=== PATIENT | female | born 1985 | race Caucasian/White ===

== ENCOUNTER 2017-05-11 10:57 | Emergency (ER) | payer OTHER ==
[2017-05-11 11:06] VITALS: BP 126/74
[2017-05-11] MEDS ORDERED: LIDOCAINE-EPINEPH-TETRACAINE 3 ML SYRINGE TOP STA (11:17)
--- NOTE | 2017-05-11 11:21 | ED Physician Documentation ---
History of Present Illness - Stated complaint Stated Complaint: L ANKLE INJ - Chief complaint Chief Complaint: Ext Problem - Additonal information Additional information: 31 y/o f box jumps at [employer] slipped and hit an L campos on the corner of the box suffering a 2 cm linear lac went to [facility] and was sent to the ER Review of Systems Skin: reports: Laceration (s) PD PAST MEDICAL HISTORY - Past Medical History Past Medical History: No - Past Surgical History Past Surgical History: No - Present Medications Home Medications: Ambulatory Orders Medication Instructions Recorded Confirmed No Known Home Medications [No 05/11/17 05/11/17 Known Home Medications] - Allergies Allergies/Adverse Reactions: Allergies Allergy/AdvReac Type Severity Reaction Status Date / Time No Known Drug Allergies Allergy Verified 05/11/17 11:02 - Social History Does the pt smoke?: No Smoking Status: Never smoker PD ED PE NORMAL - Vitals Vital signs reviewed: Yes - Extremities Extremities: Other (2 cm linear lac ant L campos that approximates well, no FB seen or palpated, MSV intact) Results - Vitals Vitals: Vital Signs - 24 hr 05/11/17 11:00 Temperature 36.3 C L Heart Rate 99 Respiratory 17 Rate Blood Pressure 126/74 O2 Saturation 100 Oxygen O2 Source Room air Procedures - Laceration (location) leg Length in cm: 2 Wound type: Linear Anesthesia: LET Wound Preparation: Irrigated copiously NS, To the base. No: FB identified Skin layer closure: Dermabond Other: Patient tolerated well, Tetanus UTD Complexity: Simple Departure - Departure Disposition: 01 Home, Self Care Clinical Impression: Laceration Condition: Good Instructions: ED Laceration Ext Skin Glue Comments: May shower normally. Do not apply any lotion or ointment to the skin glue as that will cause the glue to dissolve Even with good wound car some lacerations become infected - please look at the wound daily and return to the ER for any significant redness swelling or discharge
== END 2017-05-11 12:41 | disposition home or self-care (01) ==
LOC: ED 10:57
DX: S81.812A Laceration without foreign body, left lower leg, initial encounter (principal); W22.8XXA Striking against or struck by other objects, initial encounter; Y93.39 Activity, other involving climbing, rappelling and jumping off; Y92.39 Other specified sports and athletic area as the place of occurrence of the external cause
CPT/HCPCS: 12001; 99282; 99283